=== PATIENT | female | born 1980 | race Caucasian/White ===

== ENCOUNTER → 2016-05-18 | Outpatient (CLI) | payer OTHER ==
[~2016-05-18] MED LIST: ANTIVERT PO; VICODIN 5/500 T1 TAB PO
--- NOTE | ~2016-05-18 | MR176 ---
[facility] A Service of [facility] RADIOLOGY TEXT RESULTS PATIENT: BROOK VANEGAS [facility] 84 UNIT #: [id number] AGE: [address]: Milly Stroud MD SEX: F ORDER DR: [id number] [facility] [address] [place], [place] [address] [id number] O MR#: [id number] Acc #: [id number] NAME: BROOK VANEGAS : 1980 SEX: F STUDY DATE/TIME: 05/18/2016 10:39 UNIT: [facility] ROOM: STUDY DESCRIPTION: MR Thoracic Wo Contrast Attending Physician: Milly Stroud M.D. Referring Physician: Milly Stroud M.D. Ordering Physician: Milly Stroud M.D. Primary Care Physician: Milly Stroud M.D. MRI CENTER REPORT This report is preliminary unless electronic signature is present. EXAM MRI of the thoracic spine without contrast HISTORY Mid-back pain for 7 years. Pain is left-sided with numbness, also feels like there is a knot under her left scapula that comes and goes with a dull pain associated with it. No history of cancer. COMMENT MRI of the thoracic spine was performed without contrast using routine 1.5T imaging technique. There is plain film comparison from 12/31/2015. Sagittal alignment is normal. Bone marrow signal intensity is unremarkable allowing for focal fat/vertebral body hemangioma formation. Intervertebral discs are relatively well-hydrated. The thoracic cord is normal in size and signal intensity. There is no evidence for thoracic canal stenosis. No obvious foraminal impingement. There are tiny dependent pleural effusions bilaterally. This is atypical for age group and please correlate further clinically. They are of uncertain further significance. IMPRESSION 1. Essentially normal MRI of the thoracic spine. 2. Tiny dependent pleural effusions of uncertain further significance clinically not typically seen in age group. Please correlate further with clinical findings. Consider correlation with a two-view chest x-ray. Dictated by... [facility] A Service of [facility] RADIOLOGY TEXT RESULTS PATIENT: BROOK VANEGAS LOCATION: [facility] : 84 UNIT #: [id number] AGE: [address]: Milly Stroud MD SEX: F ORDER DR: Madeleine Borjas M.D. THIS IS AN ELECTRONICALLY VERIFIED REPORT Madeleine Borjas M.D. at 05/18/2016 4:38 PM SCOUT/madeleine TD: 05/18/2016 13:45 JOB #: [id number] MRI CENTER REPORT Page 1 of 1 COPY
--- NOTE | ~2016-05-18 | MR32 ---
[facility] A Service of [facility] & [facility] RADIOLOGY TEXT RESULTS PATIENT: BROOK VANEGAS LOCATION: [facility] : 84 UNIT #: [id number] AGE: [address]: Milly Stroud MD SEX: F ORDER DR: [id number] [facility] [address] [place], [place] [address] [id number] O MR#: [id number] Acc #: [id number] NAME: BROOK VANEGAS : 1980 SEX: F STUDY DATE/TIME: 05/18/2016 10:15 UNIT: [facility] ROOM: STUDY DESCRIPTION: MR Cervical Wo Contrast Attending Physician: Milly Stroud M.D. Referring Physician: Milly Stroud M.D. Ordering Physician: Milly Stroud M.D. Primary Care Physician: Milly Stroud M.D. MRI CENTER REPORT This report is preliminary unless electronic signature is present. EXAM MRI of the cervical spine without. HISTORY Neck pain, mid back pain; symptoms for 7 years. Pain and numbness is on the left side. Feels a knot under the left scapula that comes and goes. Dull pain in that area all the time. COMMENT MRI of the cervical spine performed without contrast, using routine 1.5-T imaging technique. Plain film comparison is from 12/31/2015. Sagittal alignment is normal. Bone marrow signal intensity is normal. Mild intervertebral disc desiccation mid cervical spine, most apparent at C3-C4. The cervical cord is normal in size and signal intensity. There is no Chiari I malformation. C2-C3: No significant abnormality. C3-C4: Mild concentric disc bulge with broad posterior disc protrusion and endplate spondylosis. This results in mild cord flattening anteriorly, but the cord is still surrounded by CSF posteriorly. Very mild canal stenosis at this level. Mild left foraminal narrowing. C4-C5: Mild right-sided facet degenerative change. No canal or foraminal impingement. C5-C6: Mild bilateral facet degenerative change, minor concentric disc bulge. No canal stenosis. Mild right foraminal narrowing. [facility] A Service of [facility] & [facility] RADIOLOGY TEXT RESULTS PATIENT: BROOK VANEGAS LOCATION: [facility] : 84 UNIT #: [id number] AGE: [address]: Milly Stroud MD SEX: F ORDER DR: C6-C7: Mild bilateral facet degenerative change, minor posterior disc bulge; no canal stenosis or foraminal impingement. C7-T1: Mild to moderate left-sided facet degenerative change and mild left foraminal narrowing. No canal stenosis. IMPRESSION 1. In general, fairly mild cervical degenerative changes, most significant-appearing radiographically at the C3-C4 level, where a combination of findings results in very mild canal stenosis. 2. Please refer to the [id number] discussion and correlate with symptoms. STAT * RESULT Dictated by... Madeleine Borjas M.D. THIS IS AN ELECTRONICALLY VERIFIED REPORT Madeleine Borjas M.D. at 06/06/2016 5:53 PM SCOUT/keren TD: 06/06/2016 13:07 JOB #: [id number] MRI CENTER REPORT Page 1 of 1 COPY
== END | disposition home or self-care (01) ==
LOC: CMRI 09:37
DX: M54.6 Pain in thoracic spine (principal); M54.2 Cervicalgia; J90 Pleural effusion, not elsewhere classified
CPT/HCPCS: 72141; 72146